=== PATIENT | male | born 1955 | race Caucasian/White ===

== ENCOUNTER 2018-06-09 17:23 | Inpatient (IN) | payer MEDICARE ==
[~2018-06-09] VITALS: Ht 167.6 cm; Wt 82.4 kg
[2018-06-09 19:29] LABS: INTERNATIONAL NORMALIZED RATIO 1.27 (0.93-1.1); PROTHROMBIN TIME 13.2 Seconds (9.6-11.5)
[2018-06-09 19:30] LABS: MEAN CORPUSCULAR HEMOGLOBIN 30.9 pg (27.5-34.5); MEAN CORPUSCULAR VOLUME 90.7 fL (81-97); MEAN PLATELET VOLUME 8.5 fL (7.4-10.4); PLATELET COUNT 286 x10^3/uL (130-400); RED BLOOD COUNT 5.02 x10^6/uL (4.38-5.82); RED CELL DISTRIBUTION WIDTH 18.4 % (9.4-14.8)
[2018-06-09 19:31] LABS: ALANINE AMINOTRANSFERASE 26 U/L (12-78); ALBUMIN 2.2 g/dL (3.4-5.0); ANION GAP 13 mmol/L (5-15); CALCIUM 8.7 mg/dL (8.5-10.1); CHLORIDE 99 mmol/L (98-107); CREATININE 3.33 mg/dL (0.7-1.3)
[2018-06-09 19:33] LABS: ALKALINE PHOSPHATASE 101 U/L (45-117); BILIRUBIN,TOTAL 0.6 mg/dL (0.2-1.0); TOTAL PROTEIN 6.4 g/dL (6.4-8.2)
[2018-06-09 19:42] LABS: MD YES
[2018-06-09 19:44] LABS: <PLATELET ESTIMATE> ADEQUATE; <PLT MORPHOLOGY> NORMAL PLT MORPH; ANISOCYTOSIS 1+; BAND#(MANUAL) 5.88 x10^3/uL; BANDS%(MANUAL) 21 % (0-7); LYMPH#(MANUAL) 0.84 x10^3/uL (1-3.4); LYMPHS% (MANUAL) 3 % (22-44); MONOS% (MANUAL) 5 % (2-9); POLYCHROMASIA 1+; SEG#(MANUAL) 19.88 x10^3/uL (1.8-6.8); SEGS% (MANUAL) 71 % (42-75); TROPONIN I 0.572 ng/mL (0.000-0.045)
[2018-06-09] MEDS ORDERED: ZOSYN PER PHARMACY MC PRN (20:00)
[2018-06-09] MEDS ORDERED: NOREPINEPHRINE 4 MG in SODIUM CHLORIDE 0.9% 246 ML IV PRN (20:11)
[2018-06-09] MEDS: PLEASE ENTER ALLERGIES MC SCH ×2 (20:28→20:47)
[2018-06-09] MEDS: ALBUTEROL/IPRATROPIUM 2.5MG/0.5MG, 3 ML INLINE SCH (20:30)
[2018-06-09] MEDS ORDERED: SODIUM CHLORIDE 0.9%, 500ML IVBOLUS ONE (20:30)
[2018-06-09] MEDS ORDERED: SENNA/DOCUSATE TABLET NG PRN (20:30)
[2018-06-09] MEDS ORDERED: LACTULOSE 20 GM/30 ML UDC NG PRN (20:30)
[2018-06-09] MEDS ORDERED: ACETAMINOPHEN 650 MG SUPP PR PRN (20:30)
[2018-06-09] MEDS ORDERED: BISACODYL 10 MG SUPP PR PRN (20:30)
[2018-06-09] MEDS ORDERED: PHARMACY MAY ADJ FOR RENAL FX MC SCH (20:30)
[2018-06-09] MEDS ORDERED: SENNOSIDES 8.8 MG/5 ML ORAL SOL NG PRN (20:30)
[2018-06-09] MEDS ORDERED: ONDANSETRON 2MG/ML, 2ML IVPB PRN (20:30)
[2018-06-09] MEDS ORDERED: LIDOCAINE-MPF 1%, 2ML ENDO PRN (20:30)
[2018-06-09] MEDS ORDERED: PHARMACY MAY ADJ FOR RENAL FX MC PRN (20:30)
[2018-06-09] MEDS: PLEASE ENTER HEIGHT AND WEIGHT MC SCH ×2 (20:47→21:08)
[2018-06-09] MEDS ORDERED: INSULIN REGULAR 100 UNITS/ML, 3ML VIAL SQ-INSULIN SCH (21:00)
[2018-06-09] MEDS: LINEZOLID PMX 600MG/300ML 300 ML IV SCH (21:20)
[2018-06-09] MEDS ORDERED: PIPERACILLIN/TAZO 2.25 GM in NS 50 ML IV SCH (22:30)
[2018-06-09] MEDS: HEPARIN 5,000 UNITS/ML, 1ML SQ SCH (22:32)
[2018-06-09] MEDS ORDERED: INSULIN LISPRO 100 UNITS/ML, PEN ONE (22:59)
[2018-06-09] MEDS ORDERED: INSULIN LISPRO 100 UNITS/ML, PEN SQ-INSULIN ONE (23:00)
[2018-06-09] MEDS: PIPERACILLIN/TAZO/PMX 2.25GM 50 ML IVPB SCH (23:06)
[2018-06-10] MEDS ORDERED: GLUCAGON 1 MG IM PRN (01:00)
[2018-06-10] MEDS ORDERED: DEXTROSE 50%, 50ML SYRINGE IVPush PRN (01:00)
[2018-06-10] MEDS ORDERED: INSULIN LISPRO 100 UNITS/ML, PEN SQ-INSULIN ONE (01:00)
[2018-06-10] MEDS ORDERED: DEXTROSE 4 GM TAB.CHEW PO PRN (01:00)
[2018-06-10 01:17] LABS: MICROSCOPIC INDICATED
[2018-06-10 01:27] LABS: CULTURE INDICATED? NO
[2018-06-10] MEDS: ALBUTEROL/IPRATROPIUM 2.5MG/0.5MG, 3 ML INLINE SCH ×7 (02:09→22:17)
[2018-06-10] MEDS: INSULIN LISPRO 100 UNITS/ML, PEN SQ-INSULIN SCH ×6 (02:22→20:47)
[2018-06-10] MEDS: PROPOFOL 100 ML IV PRN ×2 (04:10→16:21)
[2018-06-10 05:05] LABS: MEAN CORPUSCULAR HEMOGLOBIN 30.3 pg (27.5-34.5); MEAN CORPUSCULAR HGB CONC 33.1 g/dL (33.2-36.2); MEAN CORPUSCULAR VOLUME 91.5 fL (81-97); MEAN PLATELET VOLUME 8.9 fL (7.4-10.4); PLATELET COUNT 231 x10^3/uL (130-400); RED BLOOD COUNT 4.24 x10^6/uL (4.38-5.82); RED CELL DISTRIBUTION WIDTH 18.1 % (9.4-14.8)
[2018-06-10 05:14] LABS: ALANINE AMINOTRANSFERASE 21 U/L (12-78); ALBUMIN 1.9 g/dL (3.4-5.0); ANION GAP 12 mmol/L (5-15); CALCIUM 8.3 mg/dL (8.5-10.1); CHLORIDE 101 mmol/L (98-107); CREATININE 4.12 mg/dL (0.7-1.3)
[2018-06-10 05:18] LABS: ALKALINE PHOSPHATASE 77 U/L (45-117); BILIRUBIN,TOTAL 0.3 mg/dL (0.2-1.0); CHOL/HDL RATIO 2.8; CHOLESTEROL, TOTAL 130 mg/dL (140-239); HDL CHOL % 36 % (26-37); HDL CHOLESTEROL (DIRECT) 47 mg/dL (40-60); LDL CHOLESTEROL,CALCULATED 33 mg/dL (54-169); LDL/HDL RATIO 0.7 (0.5-3.0); TOTAL PROTEIN 5.6 g/dL (6.4-8.2); TRIGLYCERIDES 251 mg/dL (50-200); VLDL CHOLESTEROL 50 mg/dL (0-25)
[2018-06-10 05:33] LABS: MD YES
[2018-06-10 05:37] LABS: <PLATELET ESTIMATE> ADEQUATE; <PLT MORPHOLOGY> NORMAL PLT MORPH; ANISOCYTOSIS 1+; BAND#(MANUAL) 0.85 x10^3/uL; BANDS%(MANUAL) 4 % (0-7); LYMPH#(MANUAL) 0.64 x10^3/uL (1-3.4); LYMPHS% (MANUAL) 3 % (22-44); MONOS#(MANUAL) 1.06 x10^3/uL (0.3-2.7); MONOS% (MANUAL) 5 % (2-9); SEG#(MANUAL) 18.66 x10^3/uL (1.8-6.8); SEGS% (MANUAL) 88 % (42-75)
[2018-06-10] MEDS: PIPERACILLIN/TAZO/PMX 2.25GM 50 ML IVPB SCH ×3 (05:50→22:45)
[2018-06-10] MEDS: HEPARIN 5,000 UNITS/ML, 1ML SQ SCH ×3 (05:50→22:41)
[2018-06-10] MEDS ORDERED: REGULAR INSULIN 62.5 UNITS in SODIUM CHLORIDE 0.9% 249.375 ML IV PRN ×2 (06:00→08:30)
[2018-06-10] MEDS ORDERED: INSULIN LISPRO 100 UNITS/ML, PEN SQ-INSULIN SCH (07:00)
[2018-06-10] MEDS: SODIUM CHLORIDE FLUSH 10ML SYR IVF SCH ×2 (07:45→20:47)
[2018-06-10] MEDS: PANTOPRAZOLE 40 MG IV IV SCH (07:45)
[2018-06-10] MEDS: LINEZOLID PMX 600MG/300ML 300 ML IV SCH ×2 (09:53→20:46)
--- NOTE | 2018-06-10 09:54 | NUR ---
TF GOAL: w/ propofol: VITAL AF 1.2 @ 50ML/HR off propofol: VITAL AF 1.2 @ 55ML/HR
[2018-06-10] MEDS: INSULIN GLARGINE 100 UNITS/ML, PEN SQ-INSULIN SCH ×2 (09:56→20:47)
[2018-06-11] MEDS: PROPOFOL 100 ML IV PRN ×4 (00:12→22:42)
[2018-06-11] MEDS: ALBUTEROL/IPRATROPIUM 2.5MG/0.5MG, 3 ML INLINE SCH ×6 (02:15→22:14)
[2018-06-11] MEDS: INSULIN LISPRO 100 UNITS/ML, PEN SQ-INSULIN SCH ×4 (02:15→20:41)
[2018-06-11 04:49] LABS: BASOPHILS # (AUTO) 0.01 x10^3/uL (0-0.1); BASOPHILS % (AUTO) 0 % (0-1); EOSINOPHILS % (AUTO) 0 % (1-7); LYMPHOCYTES # (AUTO) 0.98 x10^3/uL (1-3.4); LYMPHOCYTES % (AUTO) 6 % (22-44); MD NO; MEAN CORPUSCULAR HEMOGLOBIN 30.7 pg (27.5-34.5); MEAN CORPUSCULAR HGB CONC 33.7 g/dL (33.2-36.2); MEAN CORPUSCULAR VOLUME 91.3 fL (81-97); MEAN PLATELET VOLUME 8.6 fL (7.4-10.4); MONOCYTES # (AUTO) 0.62 x10^3/uL (0.2-0.8); MONOCYTES % (AUTO) 4 % (2-9); NEUTROPHILS % (AUTO) 90 % (42-75); PLATELET COUNT 217 x10^3/uL (130-400); RED BLOOD COUNT 3.62 x10^6/uL (4.38-5.82)
[2018-06-11 04:56] LABS: ALBUMIN 2.1 g/dL (3.4-5.0); ANION GAP 11 mmol/L (5-15); CALCIUM 7.9 mg/dL (8.5-10.1); CHLORIDE 99 mmol/L (98-107)
[2018-06-11 05:03] LABS: CREATININE 5.62 mg/dL (0.7-1.3)
[2018-06-11] MEDS: PIPERACILLIN/TAZO/PMX 2.25GM 50 ML IVPB SCH ×3 (05:57→22:42)
[2018-06-11] MEDS: HEPARIN 5,000 UNITS/ML, 1ML SQ SCH ×3 (05:57→22:41)
[2018-06-11] MEDS: LINEZOLID PMX 600MG/300ML 300 ML IV SCH ×2 (08:53→20:43)
[2018-06-11] MEDS: PANTOPRAZOLE 40 MG IV IV SCH (08:53)
[2018-06-11] MEDS: SODIUM CHLORIDE FLUSH 10ML SYR IVF SCH ×2 (08:53→20:41)
[2018-06-11] MEDS: FENTANYL PF 100 MCG/2ML IVPush PRN ×2 (08:54→13:36)
[2018-06-11] MEDS ORDERED: CALCITRIOL 0.5 MCG CAPSULE PO SCH (09:00)
[2018-06-11] MEDS ORDERED: INSULIN GLARGINE 100 UNITS/ML, PEN SQ-INSULIN SCH ×2 (09:00→21:00)
--- NOTE | 2018-06-11 09:49 | NUR ---
06/11 TF GOAL (lowest phos formula) NEPRO @ 45ML/HR
[2018-06-11] MEDS ORDERED: ERGOCALCIFEROL 50,000 UNIT CAPSULE PO SCH (10:30)
[2018-06-11] MEDS ORDERED: ERGOCALCIFEROL 8,000UNIT/ML GT SCH (11:00)
[2018-06-12] MEDS: ALBUTEROL/IPRATROPIUM 2.5MG/0.5MG, 3 ML INLINE SCH ×2 (02:37→06:30)
[2018-06-12] MEDS: INSULIN LISPRO 100 UNITS/ML, PEN SQ-INSULIN SCH ×4 (02:59→20:06)
[2018-06-12] MEDS: PROPOFOL 100 ML IV PRN (03:07)
[2018-06-12 03:36] LABS: MEAN CORPUSCULAR HEMOGLOBIN 29.8 pg (27.5-34.5); MEAN CORPUSCULAR HGB CONC 32.5 g/dL (33.2-36.2); MEAN CORPUSCULAR VOLUME 91.7 fL (81-97); MEAN PLATELET VOLUME 8.5 fL (7.4-10.4); PLATELET COUNT 212 x10^3/uL (130-400); RED BLOOD COUNT 3.38 x10^6/uL (4.38-5.82); RED CELL DISTRIBUTION WIDTH 18.3 % (9.4-14.8)
[2018-06-12 03:38] LABS: ALBUMIN 1.9 g/dL (3.4-5.0); ANION GAP 9 mmol/L (5-15); CALCIUM 7.5 mg/dL (8.5-10.1); CHLORIDE 100 mmol/L (98-107); CREATININE 3.45 mg/dL (0.7-1.3); TRIGLYCERIDES 209 mg/dL (50-200)
[2018-06-12 04:03] LABS: MD SCAN
[2018-06-12 04:04] LABS: BASOPHILS # (AUTO) 0.07 x10^3/uL (0-0.1); BASOPHILS % (AUTO) 1 % (0-1); EOSINOPHILS # (AUTO) 0.05 x10^3/uL (0-0.4); EOSINOPHILS % (AUTO) 1 % (1-7); LYMPHOCYTES # (AUTO) 0.93 x10^3/uL (1-3.4); LYMPHOCYTES % (AUTO) 9 % (22-44); MONOCYTES # (AUTO) 0.49 x10^3/uL (0.2-0.8); MONOCYTES % (AUTO) 5 % (2-9); NEUTROPHILS # (AUTO) 8.94 x10^3/uL (1.8-6.8); NEUTROPHILS % (AUTO) 85 % (42-75)
[2018-06-12 05:48] LABS: FIO2 30 %
[2018-06-12] MEDS: HEPARIN 5,000 UNITS/ML, 1ML SQ SCH ×3 (05:48→23:25)
[2018-06-12] MEDS: PIPERACILLIN/TAZO/PMX 2.25GM 50 ML IVPB SCH ×3 (05:48→23:24)
[2018-06-12] MEDS ORDERED: DARBEPOETIN 60 MCG/ML SQ SCH (07:30)
[2018-06-12] MEDS: PANTOPRAZOLE 40 MG IV IV SCH (08:40)
[2018-06-12] MEDS: SODIUM CHLORIDE FLUSH 10ML SYR IVF SCH ×2 (08:47→20:40)
[2018-06-12] MEDS ORDERED: INSULIN GLARGINE 100 UNITS/ML, PEN SQ-INSULIN SCH ×2 (09:00→21:00)
[2018-06-12] MEDS: FENTANYL PF 100 MCG/2ML IVPush PRN (14:17)
[2018-06-13] MEDS: INSULIN LISPRO 100 UNITS/ML, PEN SQ-INSULIN SCH ×5 (03:00→23:00)
[2018-06-13 05:06] LABS: BASOPHILS # (AUTO) 0.03 x10^3/uL (0-0.1); BASOPHILS % (AUTO) 0 % (0-1); EOSINOPHILS # (AUTO) 0.14 x10^3/uL (0-0.4); EOSINOPHILS % (AUTO) 1 % (1-7); LYMPHOCYTES # (AUTO) 1.04 x10^3/uL (1-3.4); LYMPHOCYTES % (AUTO) 10 % (22-44); MD NO; MEAN CORPUSCULAR HEMOGLOBIN 29.7 pg (27.5-34.5); MEAN CORPUSCULAR HGB CONC 32.6 g/dL (33.2-36.2); MEAN CORPUSCULAR VOLUME 91.1 fL (81-97); MEAN PLATELET VOLUME 8.3 fL (7.4-10.4); MONOCYTES # (AUTO) 0.47 x10^3/uL (0.2-0.8); MONOCYTES % (AUTO) 5 % (2-9); NEUTROPHILS # (AUTO) 8.35 x10^3/uL (1.8-6.8); NEUTROPHILS % (AUTO) 83 % (42-75); PLATELET COUNT 252 x10^3/uL (130-400); RED BLOOD COUNT 3.72 x10^6/uL (4.38-5.82); RED CELL DISTRIBUTION WIDTH 18.8 % (9.4-14.8)
[2018-06-13 05:14] LABS: ANION GAP 9 mmol/L (5-15); CALCIUM 8.5 mg/dL (8.5-10.1); CHLORIDE 105 mmol/L (98-107)
[2018-06-13] MEDS: FENTANYL PF 100 MCG/2ML IVPush PRN (06:03)
[2018-06-13] MEDS: HEPARIN 5,000 UNITS/ML, 1ML SQ SCH ×3 (06:04→22:59)
[2018-06-13] MEDS: PIPERACILLIN/TAZO/PMX 2.25GM 50 ML IVPB SCH (06:05)
[2018-06-13] MEDS: PANTOPRAZOLE 40 MG IV IV SCH (07:23)
[2018-06-13] MEDS: SODIUM CHLORIDE FLUSH 10ML SYR IVF SCH ×2 (07:23→22:40)
[2018-06-13] MEDS: INSULIN GLARGINE 100 UNITS/ML, PEN SQ-INSULIN SCH ×2 (08:06→22:59)
[2018-06-13] MEDS: CEFTRIAXONE PMX 1GM/50ML 50 ML IV SCH (08:56)
[2018-06-13] MEDS ORDERED: LABETALOL 5MG/ML, 20ML IVPush PRN (10:30)
[2018-06-13] MEDS: LABETALOL 5 MG/ML SYRINGE IVPush PRN ×2 (11:42→23:38)
--- NOTE | 2018-06-13 12:32 | NUR ---
REC PUREE/NTL; swallow precautions sheet posted at bedside Addendum: 06/13/18 at [address] Amended: Links added.
[2018-06-13] MEDS: CARVEDILOL 6.25 MG TABLET PO SCH ×2 (14:18→18:20)
[2018-06-13] MEDS: OXYcodone IR 5MG TABLET PO PRN ×2 (18:25→20:41)
[2018-06-13 19:38] VITALS: BP 155/47
[2018-06-13 23:10] VITALS: BP 182/122
[2018-06-13] MEDS ORDERED: NITROGLYCERIN 0.4 MG/SPRAY SL PRN (23:30)
[2018-06-13 23:35] VITALS: BP 181/93
[2018-06-14 00:19] VITALS: BP 177/101
[2018-06-14 00:56] VITALS: BP 147/86
[2018-06-14 04:49] LABS: ALBUMIN 2.3 g/dL (3.4-5.0); ANION GAP 10 mmol/L (5-15); CHLORIDE 104 mmol/L (98-107)
[2018-06-14 04:50] LABS: CREATININE 4.76 mg/dL (0.7-1.3)
[2018-06-14] MEDS: CARVEDILOL 6.25 MG TABLET PO SCH ×2 (06:37→17:28)
[2018-06-14] MEDS: HEPARIN 5,000 UNITS/ML, 1ML SQ SCH ×3 (06:37→22:39)
[2018-06-14] MEDS: INSULIN LISPRO 100 UNITS/ML, PEN SQ-INSULIN SCH ×4 (07:00→21:00)
[2018-06-14 07:29] VITALS: BP 142/79
[2018-06-14] MEDS: INSULIN GLARGINE 100 UNITS/ML, PEN SQ-INSULIN SCH ×2 (09:00→22:51)
[2018-06-14] MEDS ORDERED: ERGOCALCIFEROL 50,000 UNIT CAPSULE PO SCH (11:00)
[2018-06-14 12:41] VITALS: BP 138/100
[2018-06-14] MEDS: OXYcodone IR 5MG TABLET PO PRN ×3 (12:55→22:38)
[2018-06-14] MEDS: PANTOPRAZOLE 40 MG IV IV SCH (12:55)
[2018-06-14] MEDS: CALCITRIOL 0.25 MCG CAPSULE PO SCH (12:55)
[2018-06-14] MEDS: CEFTRIAXONE PMX 1GM/50ML 50 ML IV SCH (12:56)
[2018-06-14] MEDS: SODIUM CHLORIDE FLUSH 10ML SYR IVF SCH ×3 (12:56→21:00)
[2018-06-14] MEDS ORDERED: DEXTROSE 50%, 50ML SYRINGE IVPush PRN (14:30)
[2018-06-14] MEDS ORDERED: GLUCAGON 1 MG IM PRN (14:30)
[2018-06-14] MEDS ORDERED: DEXTROSE 4 GM TAB.CHEW PO PRN (14:30)
--- NOTE | 2018-06-14 18:17 | NUR ---
REC THIN/PUREE; swallow precautions sheet posted at bedside Addendum: 06/14/18 at [address] Amended: Links added.
[2018-06-14 21:13] VITALS: BP 137/77
[2018-06-15 00:45] VITALS: BP 122/79
[2018-06-15] MEDS: OXYcodone IR 5MG TABLET PO PRN ×3 (03:31→18:14)
[2018-06-15 04:00] LABS: BASOPHILS # (AUTO) 0.03 x10^3/uL (0-0.1); BASOPHILS % (AUTO) 0 % (0-1); EOSINOPHILS # (AUTO) 0.28 x10^3/uL (0-0.4); EOSINOPHILS % (AUTO) 3 % (1-7); LYMPHOCYTES # (AUTO) 1.85 x10^3/uL (1-3.4); LYMPHOCYTES % (AUTO) 17 % (22-44); MD NO; MEAN CORPUSCULAR HEMOGLOBIN 30.1 pg (27.5-34.5); MEAN CORPUSCULAR HGB CONC 32.8 g/dL (33.2-36.2); MEAN CORPUSCULAR VOLUME 91.7 fL (81-97); MEAN PLATELET VOLUME 7.5 fL (7.4-10.4); MONOCYTES % (AUTO) 5 % (2-9); NEUTROPHILS # (AUTO) 8.31 x10^3/uL (1.8-6.8); NEUTROPHILS % (AUTO) 75 % (42-75); PLATELET COUNT 264 x10^3/uL (130-400); RED BLOOD COUNT 4.01 x10^6/uL (4.38-5.82)
[2018-06-15 04:10] LABS: ALANINE AMINOTRANSFERASE 13 U/L (12-78); ALBUMIN 2.5 g/dL (3.4-5.0); ANION GAP 8 mmol/L (5-15); CALCIUM 9.3 mg/dL (8.5-10.1); CHLORIDE 101 mmol/L (98-107); CREATININE 3.58 mg/dL (0.7-1.3)
[2018-06-15 04:13] LABS: ALKALINE PHOSPHATASE 79 U/L (45-117); BILIRUBIN,TOTAL 0.3 mg/dL (0.2-1.0); TOTAL PROTEIN 6.8 g/dL (6.4-8.2)
[2018-06-15] MEDS: HEPARIN 5,000 UNITS/ML, 1ML SQ SCH ×3 (06:39→22:51)
[2018-06-15] MEDS: CARVEDILOL 6.25 MG TABLET PO SCH ×2 (06:39→18:14)
[2018-06-15] MEDS: INSULIN LISPRO 100 UNITS/ML, PEN SQ-INSULIN SCH ×4 (07:00→22:50)
[2018-06-15 07:56] VITALS: BP 144/83
[2018-06-15] MEDS: CALCITRIOL 0.25 MCG CAPSULE PO SCH (08:50)
[2018-06-15] MEDS: INSULIN GLARGINE 100 UNITS/ML, PEN SQ-INSULIN SCH ×2 (08:50→22:50)
[2018-06-15] MEDS: SODIUM CHLORIDE FLUSH 10ML SYR IVF SCH ×4 (08:51→22:49)
[2018-06-15] MEDS: CEFTRIAXONE PMX 1GM/50ML 50 ML IV SCH (08:51)
[2018-06-15] MEDS ORDERED: LORazepam 2 MG/ML, 1ML IVPush ONE (10:00)
[2018-06-15 15:02] VITALS: BP 119/75
[2018-06-15 19:40] VITALS: BP 126/76
[2018-06-15 22:40] VITALS: BP 157/79
[2018-06-15 23:19] LABS: CLOSTRIDIUM DIFFICILE ANTIGEN NEGATIVE; CLOSTRIDIUM DIFFICILE TOXIN NEGATIVE (Negative)
[2018-06-16 01:54] VITALS: BP 143/77
[2018-06-16 05:50] VITALS: BP 118/76
[2018-06-16] MEDS: CARVEDILOL 6.25 MG TABLET PO SCH ×2 (05:53→16:25)
[2018-06-16 06:33] LABS: BASOPHILS # (AUTO) 0.03 x10^3/uL (0-0.1); BASOPHILS % (AUTO) 0 % (0-1); EOSINOPHILS # (AUTO) 0.29 x10^3/uL (0-0.4); EOSINOPHILS % (AUTO) 3 % (1-7); LYMPHOCYTES # (AUTO) 1.36 x10^3/uL (1-3.4); LYMPHOCYTES % (AUTO) 12 % (22-44); MD NO; MEAN CORPUSCULAR HEMOGLOBIN 30.1 pg (27.5-34.5); MEAN CORPUSCULAR HGB CONC 32.8 g/dL (33.2-36.2); MEAN CORPUSCULAR VOLUME 91.8 fL (81-97); MEAN PLATELET VOLUME 7.4 fL (7.4-10.4); MONOCYTES # (AUTO) 0.62 x10^3/uL (0.2-0.8); MONOCYTES % (AUTO) 6 % (2-9); NEUTROPHILS # (AUTO) 8.92 x10^3/uL (1.8-6.8); NEUTROPHILS % (AUTO) 80 % (42-75); PLATELET COUNT 262 x10^3/uL (130-400); RED BLOOD COUNT 4.26 x10^6/uL (4.38-5.82); RED CELL DISTRIBUTION WIDTH 18.4 % (9.4-14.8)
[2018-06-16 06:42] LABS: CALCIUM 9.1 mg/dL (8.5-10.1); CHLORIDE 99 mmol/L (98-107)
[2018-06-16 06:50] LABS: % IRON SATURATION 30 % (20-55); ALBUMIN 2.5 g/dL (3.4-5.0); ANION GAP 10 mmol/L (5-15); CREATININE 4.58 mg/dL (0.7-1.3); IRON LEVEL 46 mcg/dL (65-175); TOTAL IRON BINDING CAPACITY 151 mcg/dL (250-450)
[2018-06-16] MEDS: INSULIN LISPRO 100 UNITS/ML, PEN SQ-INSULIN SCH ×4 (07:00→22:11)
[2018-06-16] MEDS: HEPARIN 5,000 UNITS/ML, 1ML SQ SCH ×2 (07:00→16:26)
[2018-06-16] MEDS: SODIUM CHLORIDE FLUSH 10ML SYR IVF SCH ×4 (07:39→22:10)
[2018-06-16 07:42] VITALS: BP 138/84
[2018-06-16] MEDS: CEFTRIAXONE PMX 1GM/50ML 50 ML IV SCH (08:00)
[2018-06-16] MEDS: ASPIRIN 81 MG TABLET EC PO SCH (08:11)
[2018-06-16] MEDS: INSULIN GLARGINE 100 UNITS/ML, PEN SQ-INSULIN SCH ×2 (08:12→22:11)
[2018-06-16] MEDS: CALCITRIOL 0.25 MCG CAPSULE PO SCH (08:12)
[2018-06-16 13:51] VITALS: BP 112/73
[2018-06-16 18:56] VITALS: BP 120/75
[2018-06-16 22:07] VITALS: BP 124/72
[2018-06-16] MEDS: ATORVASTATIN 40 MG TABLET PO SCH (22:09)
[2018-06-16] MEDS: OXYcodone IR 5MG TABLET PO PRN (22:11)
[2018-06-17] MEDS: HEPARIN 5,000 UNITS/ML, 1ML SQ SCH ×3 (00:24→16:19)
[2018-06-17 01:37] VITALS: BP 120/75
[2018-06-17 05:17] VITALS: BP 155/91
[2018-06-17] MEDS: CARVEDILOL 6.25 MG TABLET PO SCH ×2 (05:20→16:22)
[2018-06-17] MEDS: OXYcodone IR 5MG TABLET PO PRN ×2 (05:20→20:59)
[2018-06-17 06:03] LABS: BASOPHILS # (AUTO) 0.03 x10^3/uL (0-0.1); BASOPHILS % (AUTO) 0 % (0-1); EOSINOPHILS # (AUTO) 0.41 x10^3/uL (0-0.4); EOSINOPHILS % (AUTO) 3 % (1-7); LYMPHOCYTES # (AUTO) 1.45 x10^3/uL (1-3.4); LYMPHOCYTES % (AUTO) 11 % (22-44); MD NO; MEAN CORPUSCULAR HEMOGLOBIN 30.7 pg (27.5-34.5); MEAN CORPUSCULAR HGB CONC 33.6 g/dL (33.2-36.2); MEAN CORPUSCULAR VOLUME 91.4 fL (81-97); MEAN PLATELET VOLUME 7.5 fL (7.4-10.4); MONOCYTES # (AUTO) 0.97 x10^3/uL (0.2-0.8); MONOCYTES % (AUTO) 7 % (2-9); NEUTROPHILS # (AUTO) 10.43 x10^3/uL (1.8-6.8); NEUTROPHILS % (AUTO) 79 % (42-75); PLATELET COUNT 273 x10^3/uL (130-400); RED BLOOD COUNT 4.36 x10^6/uL (4.38-5.82); RED CELL DISTRIBUTION WIDTH 18.1 % (9.4-14.8)
[2018-06-17 06:18] LABS: ALBUMIN 2.5 g/dL (3.4-5.0); CALCIUM 9.2 mg/dL (8.5-10.1); CHLORIDE 99 mmol/L (98-107)
[2018-06-17 06:21] LABS: ANION GAP 9 mmol/L (5-15); CREATININE 4.06 mg/dL (0.7-1.3)
[2018-06-17] MEDS: INSULIN LISPRO 100 UNITS/ML, PEN SQ-INSULIN SCH ×4 (07:00→20:43)
[2018-06-17] MEDS: SODIUM CHLORIDE FLUSH 10ML SYR IVF SCH ×4 (07:04→20:43)
[2018-06-17 07:36] VITALS: BP 121/79
[2018-06-17] MEDS: CEFTRIAXONE PMX 1GM/50ML 50 ML IV SCH (08:28)
[2018-06-17] MEDS: INSULIN GLARGINE 100 UNITS/ML, PEN SQ-INSULIN SCH ×2 (08:28→20:42)
[2018-06-17] MEDS: CALCITRIOL 0.25 MCG CAPSULE PO SCH (08:29)
[2018-06-17] MEDS: ASPIRIN 81 MG TABLET EC PO SCH (08:29)
[2018-06-17 13:55] VITALS: BP 116/54
[2018-06-17 18:58] VITALS: BP 133/74
[2018-06-17] MEDS: ATORVASTATIN 40 MG TABLET PO SCH (20:41)
[2018-06-18] MEDS: HEPARIN 5,000 UNITS/ML, 1ML SQ SCH ×3 (00:49→16:47)
[2018-06-18 03:20] VITALS: BP 144/76
[2018-06-18] MEDS: CARVEDILOL 6.25 MG TABLET PO SCH ×2 (04:15→16:44)
[2018-06-18 05:33] LABS: ALBUMIN 2.3 g/dL (3.4-5.0); ANION GAP 10 mmol/L (5-15); CALCIUM 8.9 mg/dL (8.5-10.1); CHLORIDE 97 mmol/L (98-107); CREATININE 4.93 mg/dL (0.7-1.3)
[2018-06-18 05:38] LABS: BASOPHILS # (AUTO) 0.02 x10^3/uL (0-0.1); BASOPHILS % (AUTO) 0 % (0-1); EOSINOPHILS # (AUTO) 0.25 x10^3/uL (0-0.4); EOSINOPHILS % (AUTO) 3 % (1-7); LYMPHOCYTES # (AUTO) 1.21 x10^3/uL (1-3.4); LYMPHOCYTES % (AUTO) 15 % (22-44); MD NO; MEAN CORPUSCULAR HEMOGLOBIN 30.6 pg (27.5-34.5); MEAN CORPUSCULAR HGB CONC 33.6 g/dL (33.2-36.2); MEAN CORPUSCULAR VOLUME 91.1 fL (81-97); MEAN PLATELET VOLUME 7.2 fL (7.4-10.4); MONOCYTES # (AUTO) 0.67 x10^3/uL (0.2-0.8); MONOCYTES % (AUTO) 8 % (2-9); NEUTROPHILS # (AUTO) 6.05 x10^3/uL (1.8-6.8); NEUTROPHILS % (AUTO) 74 % (42-75); PLATELET COUNT 279 x10^3/uL (130-400); RED BLOOD COUNT 3.73 x10^6/uL (4.38-5.82); RED CELL DISTRIBUTION WIDTH 18.2 % (9.4-14.8)
[2018-06-18] MEDS: INSULIN LISPRO 100 UNITS/ML, PEN SQ-INSULIN SCH ×4 (07:00→20:29)
[2018-06-18] MEDS: INSULIN GLARGINE 100 UNITS/ML, PEN SQ-INSULIN SCH ×2 (08:39→20:29)
[2018-06-18] MEDS: ASPIRIN 81 MG TABLET EC PO SCH (08:39)
[2018-06-18] MEDS: CALCITRIOL 0.25 MCG CAPSULE PO SCH (08:39)
[2018-06-18] MEDS: SODIUM CHLORIDE FLUSH 10ML SYR IVF SCH ×4 (08:44→20:29)
[2018-06-18] MEDS ORDERED: SEVELAMER HCL 800MG TABLET PO SCH (12:00)
[2018-06-18 13:50] VITALS: BP 132/81
[2018-06-18] MEDS: SEVELAMER CARBONATE 800MG TAB PO SCH (13:53)
[2018-06-18] MEDS: OXYcodone IR 5MG TABLET PO PRN ×2 (13:54→20:28)
[2018-06-18] MEDS: CEFTRIAXONE PMX 1GM/50ML 50 ML IV SCH (14:01)
[2018-06-18 16:40] VITALS: BP 117/63
[2018-06-18 20:13] VITALS: BP 101/68
[2018-06-18] MEDS: ATORVASTATIN 40 MG TABLET PO SCH (20:28)
[2018-06-19] MEDS: HEPARIN 5,000 UNITS/ML, 1ML SQ SCH ×2 (00:48→08:00)
[2018-06-19 01:35] VITALS: BP 128/78
[2018-06-19 04:57] LABS: ALBUMIN 2.3 g/dL (3.4-5.0); ANION GAP 10 mmol/L (5-15); CALCIUM 8.9 mg/dL (8.5-10.1); CHLORIDE 100 mmol/L (98-107); CREATININE 4.04 mg/dL (0.7-1.3)
[2018-06-19 05:00] LABS: BASOPHILS # (AUTO) 0.02 x10^3/uL (0-0.1); BASOPHILS % (AUTO) 0 % (0-1); EOSINOPHILS # (AUTO) 0.24 x10^3/uL (0-0.4); EOSINOPHILS % (AUTO) 3 % (1-7); LYMPHOCYTES # (AUTO) 1.25 x10^3/uL (1-3.4); LYMPHOCYTES % (AUTO) 14 % (22-44); MD NO; MEAN CORPUSCULAR HEMOGLOBIN 30.9 pg (27.5-34.5); MEAN CORPUSCULAR HGB CONC 33.9 g/dL (33.2-36.2); MEAN CORPUSCULAR VOLUME 91.4 fL (81-97); MEAN PLATELET VOLUME 7.2 fL (7.4-10.4); MONOCYTES % (AUTO) 10 % (2-9); NEUTROPHILS # (AUTO) 6.59 x10^3/uL (1.8-6.8); NEUTROPHILS % (AUTO) 73 % (42-75); PLATELET COUNT 320 x10^3/uL (130-400); RED BLOOD COUNT 3.69 x10^6/uL (4.38-5.82); RED CELL DISTRIBUTION WIDTH 18.2 % (9.4-14.8)
[2018-06-19 05:17] VITALS: BP 124/76
[2018-06-19] MEDS: CARVEDILOL 6.25 MG TABLET PO SCH (05:30)
[2018-06-19] MEDS: OXYcodone IR 5MG TABLET PO PRN (05:30)
[2018-06-19] MEDS: INSULIN LISPRO 100 UNITS/ML, PEN SQ-INSULIN SCH ×2 (07:00→11:00)
[2018-06-19 08:00] VITALS: BP 130/79
[2018-06-19] MEDS: SODIUM CHLORIDE FLUSH 10ML SYR IVF SCH ×2 (09:00→10:37)
[2018-06-19] MEDS ORDERED: DARBEPOETIN 60 MCG/ML SQ SCH (10:17)
[2018-06-19] MEDS: CEFTRIAXONE PMX 1GM/50ML 50 ML IV SCH (10:37)
[2018-06-19] MEDS: SEVELAMER CARBONATE 800MG TAB PO SCH ×2 (10:37→12:00)
[2018-06-19] MEDS: CALCITRIOL 0.25 MCG CAPSULE PO SCH (10:38)
[2018-06-19] MEDS: ASPIRIN 81 MG TABLET EC PO SCH (10:38)
[2018-06-19] MEDS: INSULIN GLARGINE 100 UNITS/ML, PEN SQ-INSULIN SCH (10:39)
[2018-06-19] MEDS ORDERED: INSU100I11 SQ-INSULIN (11:10)
[2018-06-19] MEDS ORDERED: INSU100I13 SQ-INSULIN (11:10)
[2018-06-19] MEDS ORDERED: HYDR-3341 PO (11:10)
[2018-06-19] MEDS ORDERED: SEVE800T8 PO (11:10)
[2018-06-19] MEDS ORDERED: DARB60VI SQ (11:10)
[2018-06-19] MEDS ORDERED: CALC0.25 PO (11:10)
[2018-06-19] MEDS ORDERED: ATOR40TA78 PO (11:10)
[2018-06-19] MEDS ORDERED: CARV6.2512 PO (11:10)
[2018-06-19] MEDS ORDERED: ASPI81TA45 PO (11:10)
[2018-06-19] MEDS ORDERED: OXYC5TAB3 PO (11:36)
== END 2018-06-19 13:10 | DRG 871 ==
LOC: CCU 18:32 → 5SO 06-13 17:26 → CCU 06-13 17:28 → 5SO 06-13 17:30 → CCU 06-13 17:36 → 5SO 06-13 17:38
PROVIDERS: ADMIT Internal Medicine; ATTEND Internal Medicine
PROC: 5A1945Z Respiratory Ventilation, 24-96 Consecutive Hours (ICD-10-PCS; 2018-06-09)
PROC: 0T9B70Z Drainage of Bladder with Drainage Device, Via Natural or Artificial Opening (ICD-10-PCS; 2018-06-10)
PROC: 5A1D70Z Performance of Urinary Filtration, Intermittent, Less than 6 Hours Per Day (ICD-10-PCS; principal; 2018-06-11)
PROC: 5A1D70Z Performance of Urinary Filtration, Intermittent, Less than 6 Hours Per Day (ICD-10-PCS; 2018-06-14)
PROC: 5A1D70Z Performance of Urinary Filtration, Intermittent, Less than 6 Hours Per Day (ICD-10-PCS; 2018-06-16)
PROC: 5A1D70Z Performance of Urinary Filtration, Intermittent, Less than 6 Hours Per Day (ICD-10-PCS; 2018-06-18)
DX: A41.9 Sepsis, unspecified organism (principal); I63.9 Cerebral infarction, unspecified; J81.0 Acute pulmonary edema; J96.20 Acute and chronic respiratory failure, unspecified whether with hypoxia or hypercapnia; N18.6 End stage renal disease; E43 Unspecified severe protein-calorie malnutrition; I50.33 Acute on chronic diastolic (congestive) heart failure; I49.01 Ventricular fibrillation; I46.2 Cardiac arrest due to underlying cardiac condition; J13 Pneumonia due to Streptococcus pneumoniae; I13.2 Hypertensive heart and chronic kidney disease with heart failure and with stage 5 chronic kidney disease, or end stage renal disease; J44.0 Chronic obstructive pulmonary disease with (acute) lower respiratory infection; J44.1 Chronic obstructive pulmonary disease with (acute) exacerbation; M00.9 Pyogenic arthritis, unspecified; D63.1 Anemia in chronic kidney disease; E11.22 Type 2 diabetes mellitus with diabetic chronic kidney disease; E11.42 Type 2 diabetes mellitus with diabetic polyneuropathy; M10.9 Gout, unspecified; N13.9 Obstructive and reflux uropathy, unspecified; E11.51 Type 2 diabetes mellitus with diabetic peripheral angiopathy without gangrene; E11.65 Type 2 diabetes mellitus with hyperglycemia; F17.210 Nicotine dependence, cigarettes, uncomplicated; Z89.511 Acquired absence of right leg below knee; Z89.512 Acquired absence of left leg below knee; Z79.82 Long term (current) use of aspirin; Z82.49 Family history of ischemic heart disease and other diseases of the circulatory system; Z86.73 Personal history of transient ischemic attack (TIA), and cerebral infarction without residual deficits; Z99.2 Dependence on renal dialysis; Z68.29 Body mass index [BMI] 29.0-29.9, adult
CPT/HCPCS: 36415; 36600; 70551; 71045; 74230; 80048; 80053; 80061; 80069; 81001; 82306; 82330; 82728; 82803; 82962; 83036; 83540; 83550; 83605; 83735; 83970; 84100; 84478; 84484; 85025; 85610; 85730; 86705; 86706; 87040; 87070; 87081; 87184; 87205; 87324; 87340; 93005; 93306; 93880; 94002; 94003; 94640; G0378; J0696; J0881; J1644; J1815; J2020; J2543; J2704; J3010; J7620; C9113; J2060; J7040; J7050